=== PATIENT | male | born 1990 | race Caucasian/White ===

== ENCOUNTER 2019-10-14 10:08 | Emergency (ER) | payer OTHER, SELFPAY ==
--- NOTE | ~2019-10-14 | XR_ITS ---
EXAMINATION: [id number]_[id number] DATE: 10/14/2019 10:58 INDICATION: Left neck pain. TECHNIQUE: 3 views of cervical spine were obtained. COMPARISON: None. FINDINGS: There is 4 degrees levocurvature of cervicothoracic spine. Vertebral body heights are vandana l. There is mildly decreased disc height at C5-C6 and C6-C7. The facet joints are unremarkable. There is mild central canal stenosis at C5-C6 and C6-C7. No prevertebral soft tissue swelling. IMPRESSION: 1. Mild cervical spondylosis. Reviewed, dictated and finalized at location A.
--- NOTE | ~2019-10-14 | XR_ITS ---
EXAMINATION: XR shoulder LT min 2V DATE: 10/14/2019 10:59 INDICATION: Left shoulder pain. TECHNIQUE: 4 views of left shoulder were obtained. COMPARISON: None. FINDINGS: Bone alignment is normal. No fracture. Joint spaces are well maintained. IMPRESSION: 1. Normal left shoulder. Reviewed, dictated and finalized at location A. IMPRESSION: 1. Normal left shoulder.
[2019-10-14 10:16] VITALS: BP 130/98; PULSE 89; RESP 18; TEMP 36.8; O2SAT 96
--- NOTE | 2019-10-14 10:40 | ED.UPPEXIN ---
HPI - Extremity Injury (Upper) General Chief Complaint: Extremity Injury, Upper Stated Complaint: left shoulder pain Time Seen by Provider: 10/14/19 10:24 Source: patient Mode of arrival: ambulatory Limitations: no limitations History of Present Illness HPI narrative: This is a 29-year-old male that presents emergency department for left shoulder pain x1 month. No known injury or trauma. Reports worsening over the last couple of days. Reports he has been seeing a chiropractor for this. He has been taking anti-inflammatories with some relief. Reports the pain starts on the left side of his neck and radiates into his shoulder. Denies fever, erythema, edema, numbness, or weakness. Related Data Allergies Allergy/AdvReac Type Severity Reaction Status Date / Time Pertussis Vaccines Allergy Unknown reaction Verified 10/14/19 10:21 Review of Systems Review of Systems: Narrative: CONSTITUTIONAL: Denies fever SKIN: Denies rash MUSCULOSKELETAL: Reports joint pain, and myalgia. NEUROLOGIC: Denies headache, numbness, or weakness. All systems reviewed & are unremarkable except as noted in HPI and below PMFSH Past Medical History Medical History (Updated 10/14/19 @ 12:08 by Brenna Mota PA-C) No active medical problems Social History Social History (Updated 10/14/19 @ 10:41 by Brenna Mota PA-C) Substance use: never Gender identity (if verbalized by the patient): Male Exam Narrative: Exam Narrative: GENERAL: Well-appearing, well-nourished, and in no acute distress. HEAD: Normocephalic, atraumatic. EYES: EOMI. NECK: Supple. No adenopathy or masses. Normal range of motion. No midline spinal tenderness CHEST: Clear to auscultation. No respiratory distress. No wheezes rales or rhonchi HEART: Regular rate and rhythm. No murmur heard. EXTREMITIES: Normal range of motion. No edema, erythema, or obvious deformity. Normal sensation. Normal peripheral pulses SKIN: Warm, dry, no rash. NEURO: No focal deficits. Alert and oriented x3. PSYCH: Normal mood and affect Course Vital Signs Vital signs: Vital Signs Temperature 98.2 F 10/14/19 10:16 Pulse Rate 89 10/14/19 10:16 Respiratory Rate 18 10/14/19 10:16 Blood Pressure 130/98 H 10/14/19 10:16 Pulse Oximetry 96 10/14/19 10:16 Temperature 98.2 F 10/14/19 10:16 Pulse Rate 89 10/14/19 10:16 Respiratory Rate 18 10/14/19 10:16 Blood Pressure 130/98 H 10/14/19 10:16 Pulse Oximetry 96 10/14/19 10:16 MDM - Extremity Injury (Upper) MDM Narrative Medical decision making narrative: Patient presents emergency department for left shoulder pain and left-sided neck pain x1 month. No known injury or trauma. Patient is neurologically intact. Left shoulder and cervical spine x-rays are without acute findings. Patient updated on case findings. Reports some improvement with Toradol. Patient was instructed to rest, ice and take [id number] pain medication as needed. He will be given muscle relaxer as needed for pain at home. Patient is to follow-up with orthopedics. He was given warnings to return to the ER Imaging Data Radiologist's impression: ITS Impressions Cervical Spine X-Ray 10/14/19 11:04 IMPRESSION: 1. Mild cervical spondylosis. Shoulder X-Ray 10/14/19 11:05 IMPRESSION: 1. Normal left shoulder. Critical Care Time Critical Care Time Critical Care Time: No Discharge Plan Discharge Clinical Impression: Acute pain of left shoulder, Neck pain on left side Patient Disposition: Home, Self-Care Condition: Stable Instructions: Shoulder Pain (ED) Additional Instructions: Return to the ER if you experience weakness, numbness, or any other symptoms that are concerning to you Rest, use ice/heat, take anti-inflammatories (Aleve, Ibuprofen, Naproxen, etc) or Tylenol as needed for pain as well as muscle relaxer (Flexeril) as needed for pain. Muscle relaxers can make you drowsy, do not drive if y
[2019-10-14] MEDS: KETOROLAC (*BKC) 60 MG/2 ML VIAL IM (11:03)
[2019-10-14 12:20] VITALS: BP 128/84; PULSE 84; RESP 18; O2SAT 98
== END 2019-10-14 12:21 | disposition home or self-care (01) ==
PROVIDERS: Emergency Provider Emergency Medicine; PCP Family Medicine
DX: M25.512 Pain in left shoulder (principal); M54.2 Cervicalgia; M47.812 Spondylosis without myelopathy or radiculopathy, cervical region
CPT/HCPCS: 72040; 73030; 96372; 99284; J1885

== ENCOUNTER 2019-10-15 03:52 | Emergency (ER) | payer OTHER, SELFPAY ==
[2019-10-15 03:52] VITALS: BP 134/93; PULSE 73; RESP 14; TEMP 36.6; O2SAT 100
--- NOTE | 2019-10-15 03:55 | ED.EXTPRO ---
HPI - Extremity Problem General Chief complaint: Extremity Problem,Nontraumatic Stated complaint: left shoulder pain Time Seen by Provider: 10/15/19 03:55 Source: patient Mode of arrival: ambulatory Limitations: no limitations History of Present Illness HPI Narrative: Patient is a 29-year-old male who returns for reevaluation of his continued left shoulder pain. Patient was seen here earlier this evening with negative imaging, normal exam including neurovascular exam of the left shoulder and discharged home with symptomatic treatment and orthopedic follow-up. Patient presents because he states he has been unable to sleep due to aching shoulder pain. He states initially the anti-inflammatories and medication were helping his pain, but the pain has recurred. The pain is experienced with movement such as when the patient raises his arm above his head. He denies any fever, chills, systemic and symptoms. There is no redness or swelling of the shoulder joint. Patient again denies trauma or injury. He states he has had the pain for about a month and has seen a chiropractor for 3-4 visits and initially this was helping his pain, but now does not seem to be affecting it. Patient denies any chest pain or shortness of breath. No numbness in his hand. He reports the pain migrates from the back of his shoulder down into his arm and again is exacerbated with movement. Related Data Allergies Allergy/AdvReac Type Severity Reaction Status Date / Time Pertussis Vaccines Allergy Unknown reaction Verified 10/15/19 03:56 Review of Systems Review of Systems: Narrative: CONSTITUTIONAL: Denies fever CARDIOVASCULAR: Denies chest pain RESPIRATORY: Denies cough or dyspnea. GASTROINTESTINAL: Denies abdominal pain SKIN: Denies rash MUSCULOSKELETAL: Denies back pain, reports pain in the back of the shoulder that radiates through the shoulder and down through the arm NEUROLOGIC: Denies headache PMFSH Past Medical History Medical History No active medical problems Social History Social History Substance use: never Gender identity (if verbalized by the patient): Male Exam Narrative: Exam Narrative: GENERAL: Awake, alert, conversant HEAD: Normocephalic, atraumatic. EYES: PERRLA and EOMI. ENT: Nares clear, no rhinorrhea or epistaxis. Mucous membranes moist. NECK: Supple. CHEST: No respiratory distress, breathing even and non labored HEART: Regular rate, sinus rhythm ABDOMEN:Non distended, non tender EXTREMITIES: Normal range of motion. Intact sensation overlying the deltoid. Intact sensation median, ulnar, radial nerve distribution. Radial pulses 2+. Biological Scientist strength is 5 out of 5. Full flexion extension at the elbow without pain. Patient is able to AB duct, internally and externally rotate the shoulder with active range of motion. Patient does report pain with arm extension. Thorax: There is point tenderness at the medial border of the left scapula which exactly reproduces the patient's pain SKIN: Warm, dry, no rash. NEURO:No focal deficits. Alert and oriented x3 Course Vital Signs Vital signs: Vital Signs Temperature 36.6 C 10/15/19 03:52 Pulse Rate 73 10/15/19 03:52 Respiratory Rate 14 10/15/19 03:52 Blood Pressure 134/93 H 10/15/19 03:52 Pulse Oximetry 100 10/15/19 03:52 Temperature 36.6 C 10/15/19 03:52 Pulse Rate 73 10/15/19 03:52 Respiratory Rate 14 10/15/19 03:52 Blood Pressure 134/93 H 10/15/19 03:52 Pulse Oximetry 100 10/15/19 03:52 Procedures Other Procedure Procedure 1: Other Procedure: Trigger point injection: Consent was obtained. Patient made aware of risks of trigger point injection. This was done under sterile conditions. Approximately 5 mL of 1% lidocaine with epinephrine was injected to the point of tenderness at the thoracic paraspinal muscle at the medial border of
== END 2019-10-15 04:29 | disposition home or self-care (01) ==
PROVIDERS: Emergency Provider Emergency Medicine; PCP Family Medicine
DX: S24.2XXA Injury of nerve root of thoracic spine, initial encounter (principal); X58.XXXA Exposure to other specified factors, initial encounter
CPT/HCPCS: 99283

== ENCOUNTER 2021-11-21 17:04 | Emergency (ER) | payer OTHER, SELFPAY ==
[2021-11-21 17:09] VITALS: BP 124/74; PULSE 81; RESP 14; TEMP 36.8; O2SAT 100
--- NOTE | 2021-11-21 18:13 | PC.NURSE ---
Patient approached the triage desk and reported he didn't want to be seen anymore because he found a place with a shorter wait time. Vehicle Window Tinter removed patient's armband and patient walked out the ED exit without difficulty.
== END 2021-11-21 18:13 | disposition left against medical advice (07) ==
LOC: ANHED 18:28
PROVIDERS: PCP Family Medicine
DX: R68.84 Jaw pain (principal)
CPT/HCPCS: 99199

== ENCOUNTER 2022-09-20 17:59 | Emergency (ER) | payer BC, OTHER, SELFPAY ==
--- NOTE | ~2022-09-20 | XR_ITS ---
Right Hand Technique: PA, oblique, and lateral views were obtained. Clinical History: Injury Findings: No acute fracture or dislocation is seen. Osseous alignment is anatomic. Joint spaces are p reserved. Soft tissues are unremarkable. Impression: Unremarkable right hand. Reviewed, dictated and finalized at location M. Impression: Unremarkable right hand.
[2022-09-20 18:18] VITALS: BP 137/79; PULSE 76; RESP 18; TEMP 36.6; O2SAT 99
--- NOTE | 2022-09-20 19:27 | ED.GENADULT ---
HPI - General Adult General Chief complaint: Extremity Injury, Upper Stated complaint: head injury Time Seen by Provider: 09/20/22 18:47 History of Present Illness HPI narrative: 32-year-old male presented to the emergency department for evaluation of right hand pain. Patient states that a door fell on his hand yesterday. Patient states he did not punch a door. Related Data Home Medications Medication Instructions Recorded Confirmed diclofenac sodium 1 % topical gel 2 gm topical QID 10/26/19 (Voltaren Arthritis Pain) Allergies Allergy/AdvReac Type Severity Reaction Status Date / Time Pertussis Vaccines Allergy Unknown reaction Verified 11/21/21 17:05 Review of Systems Review of Systems: All systems reviewed & are unremarkable except as noted in HPI and below PMFSH Past Medical History Medical History (Updated 09/20/22 @ 19:30 by Tyshawn Pressley MD) No active medical problems Social History Social History Smoking status: Current every day smoker Substance use: never Gender identity (if verbalized by the patient): Male Exam Narrative: APPEARANCE: Well appearing, no pain, no distress, well-nourished. HEAD: normocephalic, atraumatic. EYES: PERRLA/EOMI, conjunctivae clear. NOSE: Normal no drainage NECK: Supple. No adenopathy, no masses. RESPIRATORY: Airway patent, respirations nonlabored. Clear to auscultation bilaterally, no rales, rhonchi, wheezing. CARDIOVASCULAR: Regular rate and rhythm without murmurs rubs or gallops. ABDOMINAL: Soft, nontender, nondistended, normal bowel sounds MUSCULOSKELETAL: Bruising and contusion over the lateral right hand. Neurovascular intact and normal range of motion NEURO: Alert. Cranial nerves II through XII intact. Grossly intact SKIN: Warm, dry. Normal Color Course Course Emergency Course: 32-year-old male present emergency department for evaluation of right hand pain. X-ray was negative for fracture. Patient states he did not strike anything and that he was not bitten by his dog. Patient was updated the results of the x-ray and was advised to take Tylenol ibuprofen for pain control Vital Signs Vital signs: Vital Signs Temperature 97.8 F 09/20/22 18:18 Pulse Rate 76 09/20/22 18:18 Respiratory Rate 18 09/20/22 18:18 Blood Pressure 137/79 09/20/22 18:18 Pulse Oximetry 99 09/20/22 18:18 Oxygen Delivery Room Air 09/20/22 18:18 Temperature 97.8 F 09/20/22 18:18 Pulse Rate 71 09/20/22 19:39 Respiratory Rate 18 09/20/22 19:39 Blood Pressure 131/81 09/20/22 19:39 Pulse Oximetry 99 09/20/22 19:39 Oxygen Delivery Room Air 09/20/22 18:18 Medical Decision Making Differential Diagnosis Differential Diagnosis: Contusion, boxer's fracture Vital Signs Vital Signs: Vital Signs Temperature 97.8 F 09/20/22 18:18 Pulse Rate 76 09/20/22 18:18 Respiratory Rate 18 09/20/22 18:18 Blood Pressure 137/79 09/20/22 18:18 Pulse Oximetry 99 09/20/22 18:18 Oxygen Delivery Room Air 09/20/22 18:18 Temperature 97.8 F 09/20/22 18:18 Pulse Rate 71 09/20/22 19:39 Respiratory Rate 18 09/20/22 19:39 Blood Pressure 131/81 09/20/22 19:39 Pulse Oximetry 99 09/20/22 19:39 Oxygen Delivery Room Air 09/20/22 18:18 Imaging Data Radiologist's impression: Impressions Hand X-Ray 09/20/22 18:46 Impression: Unremarkable right hand. Discharge Plan Discharge Clinical Impression: Contusion of hand Patient Disposition: Home, Self-Care Condition: Stable Instructions: Antibiotic Form, Contusion in Adults (ED) Additional Instructions: Tylenol and ibuprofen for pain control. Have close follow-up with her primary care physician. Prescriptions: No Action diclofenac sodium [Voltaren Arthritis Pain] 1 % gel 2 gm TOPICAL QID Rx Instructions: apply to single elbow, wrist or hand; for choe
[2022-09-20 19:39] VITALS: BP 131/81; PULSE 71; RESP 18; O2SAT 99
== END 2022-09-20 19:39 | disposition home or self-care (01) ==
PROVIDERS: Emergency Provider Emergency Medicine; PCP Family Medicine
DX: S60.221A Contusion of right hand, initial encounter (principal); F17.200 Nicotine dependence, unspecified, uncomplicated; W20.8XXA Other cause of strike by thrown, projected or falling object, initial encounter
CPT/HCPCS: 73130; 99283

== ENCOUNTER 2023-04-06 11:17 | Emergency (ER) | payer BC, OTHER, SELFPAY ==
[2023-04-06 11:27] VITALS: BP 105/86; PULSE 84; RESP 16; TEMP 36.3; O2SAT 99
--- NOTE | 2023-04-06 11:48 | ED.EXTPRO ---
HPI - Extremity Problem General Chief complaint: Extremity Problem,Nontraumatic Stated complaint: L ARM PAIN Time Seen by Provider: 04/06/23 11:44 Source: patient and RN notes reviewed Mode of arrival: ambulatory Limitations: no limitations History of Present Illness HPI Narrative: 33-year-old male presents with concern for pain to the left-sided left arm. Reports symptoms started 4 days ago. He denies weakness, numbness in any extremity. He denies decreased range of motion, strength, sensation. He denies any aggravating factors. Reports marijuana gummy relieved his pain temporarily. He denies any injury or trauma to his neck or arm. Denies any redness, warmth, swelling, open skin MD Complaint: extremity pain Related Data Allergies Allergy/AdvReac Type Severity Reaction Status Date / Time Pertussis Vaccines Allergy Unknown reaction Verified 04/06/23 11:35 Review of Systems Review of Systems: CONSTITUTIONAL: Denies malaise, chills, sweats, or fever. CARDIOVASCULAR: Denies chest pain, palpitations, or edema. RESPIRATORY: Denies cough or dyspnea. SKIN: Denies rash or itching, bruising, redness, swelling. MUSCULOSKELETAL: Reports left-sided neck pain radiating down left arm NEUROLOGIC: Denies numbness, weakness All systems reviewed & are unremarkable except as noted in HPI and below PMFSH Past Medical History Medical History (Updated 04/06/23 @ 11:56 by Talia Navarro NP) No active medical problems Social History Social History Smoking status: Current every day smoker Substance use: never Gender identity (if verbalized by the patient): Male Comments At time of signature, agree with nursing past medical, surgical, social and family history. There is no relevant family history pertinent to the presenting complaint Exam Narrative: GENERAL: Well-appearing, well-nourished, and in no acute distress. HEAD: Normocephalic, atraumatic. EYES: PERRLA and EOMI. NECK: Supple. No lymphadenopathy. CHEST: Clear to auscultation. No respiratory distress. HEART: Regular rate and rhythm. Distal pulses palpable and equal, cap refill <3 seconds MUSCULOSKELETAL: Normal range of motion and strength in all extremities. Normal sensation in dermatomal distributions with sensitivity to light touch and pain. No midline neck tenderness to palpation. No paraspinal tenderness. Transfers from sitting to standing. SKIN: Warm, dry, no rash. No ecchymosis, erythema, open wounds to back. NEURO: No focal deficits. Alert and oriented x3. Reflexes intact. Normal gait. PSYCH: Normal mood and affect Course Course Emergency Course: Patient is aware of diagnosis, understands and agrees to treatment plan. Anticipatory guidance given. Patient agrees to follow-up as directed and is aware of reasons to seek care at the emergency department. Portions of this record may have been created with voice recognition software Level of Care: Express Care Visit Vital Signs Vital signs: Vital Signs Temperature 97.4 F L 04/06/23 11:27 Pulse Rate 84 04/06/23 11:27 Respiratory Rate 16 04/06/23 11:27 Blood Pressure 105/86 04/06/23 11:27 Pulse Oximetry 99 04/06/23 11:27 Temperature 97.4 F L 04/06/23 11:27 Pulse Rate 84 04/06/23 11:27 Respiratory Rate 16 04/06/23 11:27 Blood Pressure 105/86 04/06/23 11:27 Pulse Oximetry 99 04/06/23 11:27 Reviewed. MDM - Extremity (Nontraumatic) MDM Narrative Medical decision making narrative: Exam findings show no acute concerns or changes; patient is non-toxic appearing and is in no distress. Patient is appropriate for outpatient treatment and follow-up. Critical Care Time Critical Care Time Critical Care Time: No Discharge Plan Discharge Clinical Impression: Neck pain Patient Disposition: Home, Self-Care Condition: Stable Instructions: Acute Neck Pain (ED) Additional Instructions: Please follow up wi
== END 2023-04-06 12:00 | disposition home or self-care (01) ==
PROVIDERS: Emergency Provider Nurse Practitioner
DX: M54.2 Cervicalgia (principal); F17.200 Nicotine dependence, unspecified, uncomplicated
CPT/HCPCS: 99213; G0463

== ENCOUNTER 2023-04-11 10:58 | Emergency (ER) | payer BC, OTHER, SELFPAY ==
[2023-04-11 11:06] VITALS: BP 122/91; PULSE 97; RESP 16; TEMP 37.4; O2SAT 100
--- NOTE | 2023-04-11 11:27 | ED.GENADULT ---
HPI - General Adult General Chief complaint: Recheck/Abnormal Lab/Rx Stated complaint: Doctors Note Time Seen by Provider: 04/11/23 11:10 Source: patient Mode of arrival: ambulatory Limitations: no limitations History of Present Illness HPI narrative: Korey is a 33-year-old male patient presenting to the clinic today with complaints needing a doctor's note to return to work. He reports he was seen on Tuesday and diagnosed with a pinched nerve in his neck/shoulder. He reports that he had taken cyclobenzaprine and a steroid. States that this did improve his pain however he called off Tuesday through Tuesday. He is needing a work note to return to work and to excuse him for the days he called off. Related Data Allergies Allergy/AdvReac Type Severity Reaction Status Date / Time Pertussis Vaccines Allergy Unknown reaction Verified 04/11/23 11:08 Review of Systems Review of Systems: Pertinent positives per HPI. Patient denies any fever, chills, rash, headache, visual changes, dizziness, cough, runny nose, sore throat, shortness of breath, chest pain, palpitations, nausea, vomiting, diarrhea, constipation, abdominal pain, or any urinary issues. [facility] Past Medical History Medical History No active medical problems Social History Social History Smoking status: Current every day smoker Substance use: never Gender identity (if verbalized by the patient): Male Comments At the time of my signature, I reviewed and agree with the nursing past medical, surgical, social, and family history. There is no relevant family history pertinent to the patient complaint. Exam Narrative: General: Well-developed, well nourished, in no apparent distress Head: Normocephalic, atraumatic. Cardio: Regular rate and rhythm, s1 and s2 normal, no murmur appreciated. Resp: Clear to auscultation bilaterally, no rhonchi, rales, wheezing or rubs. Musculoskeletal: No deformity, non-tender to palpation, grossly normal range of motion, muscle strength strong and equal, peripheral pulse strong, no edema, no cyanosis, normal gait and station Course Course Emergency Course: Portions of this record may have been created with voice recognition software. Level of Care: Express Care Visit Vital Signs Vital signs: Vital Signs Temperature 37.4 C 04/11/23 11:06 Pulse Rate 97 04/11/23 11:06 Respiratory Rate 16 04/11/23 11:06 Blood Pressure 122/91 H 04/11/23 11:06 Pulse Oximetry 100 04/11/23 11:06 Oxygen Delivery Room Air 04/11/23 11:06 Temperature 37.4 C 04/11/23 11:06 Pulse Rate 97 04/11/23 11:06 Respiratory Rate 16 04/11/23 11:06 Blood Pressure 122/91 H 04/11/23 11:06 Pulse Oximetry 100 04/11/23 11:06 Oxygen Delivery Room Air 04/11/23 11:06 Vital signs reviewed Medical Decision Making MDM Narrative Medical decision making narrative: At the time of visit patient is resting comfortably on the exam table. Patient appears to be nontoxic. Plan: Patient's symptoms have resolved and he is ready to return to work. Work note was given to return on his next scheduled shift. Supportive measures were discussed with the patient and they voiced understanding discharge instructions and agrees to treatment plan. Return precautions reviewed Differential Diagnosis Differential Diagnosis: Cervical radiculopathy, muscular strain, cervical strain, acute shoulder pain, Vital Signs Vital Signs: Vital Signs Temperature 37.4 C 04/11/23 11:06 Pulse Rate 97 04/11/23 11:06 Respiratory Rate 16 04/11/23 11:06 Blood Pressure 122/91 H 04/11/23 11:06 Pulse Oximetry 100 04/11/23 11:06 Oxygen Delivery Room Air 04/11/23 11:06 Temperature 37.4 C 04/11/23 11:06 Pulse Rate 97 04/11/23 11:06 Respiratory Rate 16 04/11/23 11:06 Blood Pressure 122/91 H 04/11/23 11
== END 2023-04-11 11:34 | disposition home or self-care (01) ==
PROVIDERS: Emergency Provider Nurse Practitioner Family
DX: M25.512 Pain in left shoulder (principal); M54.2 Cervicalgia; Z02.79 Encounter for issue of other medical certificate; F17.210 Nicotine dependence, cigarettes, uncomplicated
CPT/HCPCS: 99212; G0463